=== PATIENT | female | born 1945 | race Caucasian/White ===

== ENCOUNTER 2022-04-02 12:58 | Emergency (ER) | payer OTHER, SELFPAY ==
[2022-04-02 13:31] VITALS: BP 91/60; PULSE 63; RESP 18; TEMP 35.9; O2SAT 90; BMI 31.5
--- NOTE | 2022-04-02 13:49 | CRLHL7_ITS ---
For Patients: As a result of the Century Cures Act, medical imaging exams and procedure reports are released immediately into your electronic medical record. You may view this report before your referring provider. If you have questions, please contact your health care provider. INDICATION: Cough and dyspnea COMPARISON: None TECHNIQUE: Single-view portable chest radiograph FINDINGS: TUBES AND LINES: Pacer with leads ending in the right ventricle. HEART AND MEDIASTINUM: Heart size normal. Tortuous thoracic aorta.. LUNGS AND PLEURAL SPACES: Airspace disease at the right base and laterally at the left base. The distribution is more suggestive of an inflammatory process rather than pulmonary edema.The pleural spaces are unremarkable. OSSEOUS STRUCTURES: Age-appropriate appearance. No acute focal finding. IMPRESSION: 1. Pacer normally located. 2. Airspace disease at the right base and laterally at the left base. The distribution is more suggestive of an inflammatory process rather than pulmonary edema. Dictated by Gregory Jc MD @ 04/02/2022 2:12:08 PM (Electronically Signed)
--- NOTE | 2022-04-02 13:51 | ED_ITS ---
HPI - Weakness General Chief complaint: Weakness Stated complaint: Possible bladder infection, fell hurt shoulder Time Seen by Provider: 04/02/22 13:27 History of Present Illness HPI Narrative: This 76-year-old female comes in with her daughter and reports generalized weakness and fatigue. She has had a few falls in the past several days and was seen at a different facility to evaluate these. She also reports urinary frequency and has had 3 urinary tract infections in the past several months. She arrives with oximetry at 90% on room air. She is a smoker and does report some shortness of breath and occasional cough. Additionally her blood pressure on arrival is at 91/60. She does take antihypertensive medications and did take these meds this morning. Related Data Previous Rx's Medication Instructions Recorded cephalexin 500 mg capsule 500 mg PO TID 10 days #30 caps 04/02/22 Allergies Allergy/AdvReac Type Severity Reaction Status Date / Time lisinopril [From Zestril] Allergy Verified 04/02/22 13:30 red (food color) Allergy Verified 04/02/22 13:30 atenolol Allergy Uncoded 04/02/22 13:30 Review of Systems Status of ROS: Reports: 10 or more systems reviewed and unremarkable except as noted in History and below Narrative: Constitutional: No fevers, no weight gain or loss. Eyes: No discharge. No vision changes. HENT: No congestion, no sore throat, no ear pain. Cardiovascular: No chest pain, no palpitations. Respiratory: Occasional cough and episodes of shortness of breath. No wheezes. Gastrointestinal: No abdominal pain, no vomiting, no diarrhea. Genitourinary: Urinary frequency and occasional incontinence. Musculoskeletal: Normal range of motion. Skin: No rashes, no pruritis. Neurological: No dizziness, weakness, sensory change, speech change. Endo/Heme/Allergies: No bruising or bleeding. No polydipsia. Pysch: no suicidality, no anxiety, no insomnia. All other systems reviewed and are negative. PFSH PFS Social History Smoking Status: Never smoker Do you use any of these nicotine containing products: None Second hand tobacco smoke exposure: No How often do you have a drink containing alcohol: monthly or less How many standard drinks containing alcohol do you have on a typical day: 1 or 2 How often do you have six or more drinks on one occasion: Never AUDIT-C Alcohol total score: 1 Non-prescribed substance use: denies use Exam Narrative: Exam Narrative: Constitutional: Well-developed, well-nourished, no acute distress. HEENT: Normocephalic, atraumatic. Neck: Normal range of motion. Nontender. Supple. Heart: Regular. No murmurs. Normal rate. Intact distal pulses. Lungs: Clear to auscultation. No chest discomfort. No wheezes, rhonchi, or rales. Abdomen: Normal bowel sounds. Nontender. No rebound tenderness. Genitalia: Deferred. Back: No midline tenderness. Normal range of motion. Extremities: Normal range of motion. No injury. Mild pedal edema bilaterally. Skin: Intact. No rash. Warm. No erythema or pallor. Neurologic: No altered sensation. No weakness. Alert and oriented. No facial asymmetry. Tongue is midline. [id number] is normal. No pronator drift. Heel to garcia is normal. [employer] strength is equal bilaterally. Psychiatric: No suicidality. No anxiety or depression. No insomnia. Nursing notes and vitals signs are reviewed. Const: Vital Signs, click to edit/add: Vital Signs - 24 hr 04/02/22 13:31 04/02/22 15:02 04/02/22 15:00 Temperature 96.6 F L Pulse Rate [Femora l] 63 60 Respiratory Rate 18 14 Blood Pressure [Le ft Upper Arm] 91/60 133/85 Pulse Oximetry 90 97 97 Oxygen Delivery Me thod Room Air Nasal Cannula Nasal Cannula Oxygen Flow Rate 2 2 Course Vital Signs Vital signs: Initial Vital Signs Temperature 96.6 F L 04/02/22 13:31 Temperature Source Temporal Artery Scan 04/02/22 13:31 Pulse Rate 63 04/02/22 13:31 Pulse Rhythm 04/02/22 13:31 Respiratory Rate 18 04/02/22 13:31 Blood Pressure 91/60 04/02/22 13:31 Blood Pressure Mean 70 04/02/22 13:31 Pulse Oximetry 90 04/02/22 13:31 Oxygen Delivery Method 04/02/22 13:31 Vital Signs Temperature 96.6 F L 04/02/22 13:31 Pulse Rate 63 04/02/22 13:31 Respiratory Rate 18 04/02/22 13:31 Blood Pressure 91/60 04/02/22 13:31 Pulse Oximetry 90 04/02/22 13:31 Oxygen Delivery Method 04/02/22 13:31 Temperature 96.6 F L 04/02/22 13:31 Pulse Rate 60 04/02/22 15:00 Respiratory Rate 14 04/02/22 15:00 Blood Pressure 133/85 04/02/22 15:00 Pulse Oximetry 97 04/02/22 15:02 Oxygen Delivery Method 04/02/22 15:02 Oxygen Flow Rate 2 04/02/22 15:02 MDM - Weakness MDM Narrative Medical decision making narrative: This patient comes in reporting generalized weakness and fatigue and has fallen a few times. She also states that she has increased urinary frequency and has had infections over the past several months. An IV was established and labs were drawn. She does show sign of urinary tract infection today. Her lab results from her blood are essentially reassuring. I notice that her systolic blood pressure was 90. She states that her web coordinator increased her carvedilol dosing a couple months ago and it was not long after that that she began to feel these symptoms. She is also taking losartan. She does have follow-up appointments with a web coordinator and urologist. She received a prescr iption for Keflex today and is instructed to cut back on her antihypertensives for several days and record blood pressures regularly to bring to her next cardiology appointment. Lab Data Labs: Lab Results 04/02/22 04/02/22 04/02/22 Range/Units 14:15 14:15 14:15 WBC 7.93 (4.50-11.00) K/uL RBC 4.26 (4.00-5.20) m/uL Hgb 13.1 (12.0-16.0) gm/dL Hct 40.4 (33.0-51.0) % MCV 95 (80-100) fL MCH 31 (26-34) pg MCHC 32 (32-36) gm/dL RDW Coeff of Nataly 14.1 (11.5-15.5) % Plt Count 185 (140-440) K/uL Neut % (Auto) 69.4 (42.0-72.0) % Lymph % (Auto) 19.7 L (20-44) % [place] % (Auto) 8.4 (0.0-11.0) % Eos % (Auto) 1.9 (0.0-7.0) % Baso % (Auto) 0.5 (0.0-3.0) % Neut # (Auto) 5.50 (1.7-7.0) K/uL Lymph # (Auto) 1.60 (0.90-2.90) K/uL [place] # (Auto) 0.70 (0.00-0.90) K/UL Eos # (Auto) 0.15 (0.00-0.50) K/uL Baso # (Auto) 0.04 (0.00-0.30) K/uL Abs Immat Gran (auto) 0.01 (0.00-0.30) K/uL Sodium 133 L (135-149) mmol/L Potassium 4.0 (3.6-5.1) mmol/L Chloride 101 (96-114) mmol/L Carbon Dioxide 25 (20-32) mmol/L BUN 28 (7-30) mg/dL Creatinine 1.1 (0.5-1.5) mg/dL Estimated Creat Clear 40.09 Estimated GFR 52 ml/min Glucose 153 H (60-115) mg/dL Calcium 8.3 L (8.4-10.6) mg/dL NT-Pro-B Natriuret Pep 1590 H (0-450) PG/mL Urine Color (Yellow) Urine Appearance (Clear) Urine pH (5.0-8.5) Ur Specific [place] (1.000-1.030) Urine Protein (Negative) Urine Glucose (UA) (Negative) Urine Ketones (Negative) Urine Blood (Negative) Urine Nitrite (Negative) Urine Bilirubin (Negative) Urine Urobilinogen (0.2-1.0) Ur Leukocyte Esterase (Negative) Urine RBC (0-2) Urine WBC (0-5) Ur Squamous Epith Cells (None-Few) Urine Bacteria (None) POC Troponin I (0.01-0.04) ng/ml 04/02/22 04/02/22 Range/Units 14:15 15:50 WBC (4.50-11.00) K/uL RBC (4.00-5.20) m/uL Hgb (12.0-16.0) gm/dL Hct (33.0-51.0) % MCV (80-100) fL MCH (26-34) pg MCHC (32-36) gm/dL RDW Coeff of Nataly (11.5-15.5) % Plt Count (140-440) K/uL Neut % (Auto) (42.0-72.0) % Lymph % (Auto) (20-44) % [place] % (Auto) (0.0-11.0) % Eos % (Auto) (0.0-7.0) % Baso % (Auto) (0.0-3.0) % Neut # (Auto) (1.7-7.0) K/uL Lymph # (Auto) (0.90-2.90) K/uL [place] # (Auto) (0.00-0.90) K/UL Eos # (Auto) (0.00-0.50) K/uL Baso # (Auto) (0.00-0.30) K/uL Abs Immat Gran (auto) (0.00-0.30) K/uL Sodium (135-149) mmol/L Potassium (3.6-5.1) mmol/L Chloride (96-114) mmol/L Carbon Dioxide (20-32) mmol/L BUN (7-30) mg/dL Creatinine (0.5-1.5) mg/dL Estimated Creat Clear Estimated GFR ml/min Glucose (60-115) mg/dL Calcium (8.4-10.6) mg/dL NT-Pro-B Natriuret Pep (0-450) PG/mL Urine Color Yellow (Yellow) Urine Appearance Slightly Cloudy A (Clear) Urine pH 6.0 (5.0-8.5) Ur Specific [place] 1.020 (1.000-1.030) Urine Protein Negative (Negative) Urine Glucose (UA) Negative (Negative) Urine Ketones Negative (Negative) Urine Blood Negative (Negative) Urine Nitrite Positive A (Negative) Urine Bilirubin Negative (Negative) Urine Urobilinogen 1.0 (0.2-1.0) Ur Leukocyte Esterase 2+ A (Negative) Urine RBC 0-2 (0-2) Urine WBC 10-25 A (0-5) Ur Squamous Epith Cells None (None-Few) Urine Bacteria Many A (None) POC Troponin I 0.01 (0.01-0.04) ng/ml ECG Data Attestation: I personally reviewed and interpreted this ECG as follows: Interpretation: Ventricular paced rhythm. Rate 60 beats per minute. There are no specific ST or T-wave abnormalities. Discharge Plan Discharge Clinical Impression: Urinary tract infection, Weakness Condition: Stable Instructions: Urinary Tract Infection in Women (ED) Additional Instructions: Take medication as prescribed. Reduce carvedilol dosing to previous level and record blood pressures regularly before following up with cardiology appointment. Follow-up with urology clinic as scheduled. Return if worsening. Prescriptions: New cephalexin 500 mg capsule 500 mg PO TID 10 Days Qty: 30 0RF Follow Up/Referrals: Judi Shetty DO [Primary Care Provider] - Stand Alone Forms: [employer] Info Instructions
[2022-04-02 14:40] LABS: Basophils Absolute Auto 0.04 K/uL (0.00-0.30); Basophils Percent Auto 0.5 % (0.0-3.0); Eosinophils Absolute Auto 0.15 K/uL (0.00-0.50); Eosinophils Percent Auto 1.9 % (0.0-7.0); Hematocrit 40.4 % (33.0-51.0); Hemoglobin* 13.1 gm/dL (12.0-16.0); Immature Granulocytes Abs Auto 0.01 K/uL (0.00-0.30); Lymphocytes Percent Auto 19.7 % (20-44); Mean Corpuscular HGB Conc 32 gm/dL (32-36); Mean Corpuscular Hemoglobin 31 pg (26-34); Mean Corpuscular Volume 95 fL (80-100); Monocytes Percent Auto 8.4 % (0.0-11.0); Neutrophils Percent Auto 69.4 % (42.0-72.0); Platelet Count* 185 K/uL (140-440); RDW Coefficient of Variation % 14.1 % (11.5-15.5); Red Blood Count 4.26 m/uL (4.00-5.20); White Blood Count* 7.93 K/uL (4.50-11.00)
[2022-04-02 14:43] LABS: Slide Review Reflex No
[2022-04-02] MEDS: 0.9 % SODIUM CHLORIDE 500 ML 500 ML IV (14:46)
[2022-04-02 14:48] LABS: Chloride* 101 mmol/L (96-114); Sodium* 133 mmol/L (135-149); Troponin, Point-of-Care* 0.01 ng/ml (0.01-0.04)
[2022-04-02 14:51] LABS: Blood Urea Nitrogen* 28 mg/dL (7-30); Carbon Dioxide* 25 mmol/L (20-32); Creatinine* 1.1 mg/dL (0.5-1.5); Est. Creatinine Clearance* 40.09; Estimated Glomerular Filt Rate 52 ml/min; Glucose* 153 mg/dL (60-115)
[2022-04-02 14:52] LABS: Calcium* 8.3 mg/dL (8.4-10.6)
[2022-04-02 15:00] VITALS: BP 133/85; PULSE 60; RESP 14; O2SAT 97
--- NOTE | 2022-04-02 15:00 | ED.NURSE ---
Patient is drowsy, sleeping between cares. Noted snoring and sat 85-88%. Asked about sleep apnea, she reports she does have CPAP, did not use last night. Educated on importance of always using at night.
[2022-04-02 15:02] VITALS: O2SAT 97
[2022-04-02 15:32] LABS: NT Pro B Type NatriureticPept* 1590 PG/mL (0-450)
[2022-04-02 16:17] LABS: Appearance Urine Slightly Cloudy (Clear); Bilirubin Urine Negative (Negative); Blood Urine Negative (Negative); Color Urine Yellow (Yellow); Glucose Urine Negative (Negative); Ketones Urine Negative (Negative); Leukocyte Esterase Urine 2+ (Negative); Nitrite Urine Positive (Negative); Protein Urine Negative (Negative)
[2022-04-02 16:28] LABS: Bacteria Urine Many; RBC Urine 0-2 (0-2)
== END 2022-04-02 17:16 | disposition home or self-care (01) ==
PROVIDERS: Emergency Provider Emergency Medicine Emergency Medical Services; PCP Family Medicine
DX: N39.0 Urinary tract infection, site not specified (principal)
CPT/HCPCS: 36415; 71045; 80048; 81001; 83880; 84484; 85025; 87077; 87086; 87186; 93005; 96360; 99284; 99285; J7120